=== PATIENT | male | born 1995 | race Hispanic/Latino ===

== ENCOUNTER 2017-03-07 00:01 | Emergency (ER) | payer MEDICAID, OTHER ==
[2017-03-07 01:24] LABS: BASOPHILS % (AUTO) 0.2 % (0.0-5.0); EOSINOPHILS % (AUTO) 1.6 % (0.0-8.0); HEMATOCRIT 44.7 % (42-54); LYMPHOCYTES % (AUTO) 12.4 % (21.0-51.0); MEAN CORPUSCULAR HEMOGLOBIN 26.5 pg (27.0-33.0); MEAN CORPUSCULAR HGB CONC 33.5 g/dL (32.0-36.0); MONOCYTES % (AUTO) 7.5 % (3.0-13.0); NEUTROPHILS % (AUTO) 78.3 % (40.0-77.0); PLATELET COUNT (AUTO) 260 K/uL (130-400); RED BLOOD CELL COUNT(AUTO) 5.65 MIL/uL (4.50-6.20); RED CELL DISTRIBUTION WIDTH 14.6 % (11.0-15.5); WHITE BLOOD COUNT (AUTO) 11.6 K/uL (4.8-10.8)
[2017-03-07 01:30] LABS: CREATININE 1.1 mg/dL (0.5-1.5); POTASSIUM 3.5 mmol/L (3.5-5.1)
[2017-03-07] MEDS ORDERED: DEXAMETHASONE SOD PHOSPHATE 10MG/ML 1ML VIAL ONE (01:53)
[2017-03-07] MEDS ORDERED: CEFTRIAXONE SODIUM 1 GM ONE (01:54)
== END 2017-03-07 02:20 | disposition home or self-care (01) ==
LOC: EDH 00:01
DX: J02.0 Streptococcal pharyngitis (principal); R50.81 Fever presenting with conditions classified elsewhere; Z72.0 Tobacco use
CPT/HCPCS: 36415; 80048; 85025; 87880; 96374; 96375; 99284; J0696; J1100

== ENCOUNTER 2024-12-04 11:31 | Emergency (ER) | payer SELFPAY ==
[~2024-12-04] VITALS: Ht 172.7 cm; Wt 108.9 kg
[~2024-12-04 11:31] MED LIST: ACET-66 PO; AMOX1TAB16 PO; IBUP-1492 PO; ONDA-104 PO
[2024-12-04] MEDS ORDERED: AMOX1TAB16 PO (11:51)
--- NOTE | 2024-12-04 11:51 | ERN ---
ED Note History of Present Illness Stated Complaint: FACIAL SWELLING X 2 DAYS Chief Complaint: Face Pain/Problem Time Seen by MD: 11:34 Time Seen by Midlevel: 11:36 Dictation: 28-year-old male with no medical history coming in with complaints of left-sided facial swelling onset two days ago. Patient states he has had some mild left upper molar pain. Denies having any fever nausea and vomiting or diarrhea. Denies having any recent nasal congestion. No ear pain. Allergies: Coded Allergies: No Known Drug Allergies (Unverified Allergy, Unknown, 06/04/23) Home Meds Active Scripts Ibuprofen (Ibuprofen) 600 Mg Tablet, 600 MG PO Q6H PRN for PAIN, #15 TAB Prov:BAKARI SOLORZANO 06/04/23 Acetaminophen (Acetaminophen) 500 Mg Tablet, 500 MG PO Q4PRN for 5 Days, #15 TAB Prov:BAKARI SOLORZANO 06/04/23 Ondansetron HCl (Ondansetron HCl) 4 Mg Tablet, 4 MG PO TID for 3 Days, #9 TAB Prov:BAKARI SOLORZANO 06/04/23 Amoxicillin/Potassium Clav (Amox Tr-K Clv 875-125 mg Tab) 875 Mg-125 Mg Tablet, 1 EACH PO BID for 10 Days, #20 TAB Prov:BAKARI SOLORZANO 06/04/23 Past Medical History Past Medical History: No Pertinent History Surgical History: None Review of System Dictation Constitutional: Negative for fever,chills, and weight loss Eyes: Negative for injury, pain,redness, and discharge ENT: Negative for injury,pain or swelling Cardiovascular: Negative for chest pain, palpitations, and edema Respiratory: Negative for shortness of breath, cough, and wheezing, Abdomen/GI: Negative for abdominal pain, nausea, vomiting, diarrhea, and constipation Back: Negative for injury and pain : Negative for injury, bleeding and discharge MS/Extremity: Negative for injury and deformity Skin: Negative for rash, and discoloration, complaining of left-sided facial swelling Neuro: Negative for headache, weakness, numbness, tingling, and seizure Psych: Negative for suicide ideation, homicidal ideation, and hallucinations Review of Systems: was completed Initial Vital Sign VS Vital Signs Date Time Temp Pulse Resp B/P (MAP) Pulse Ox O2 Delivery O2 Flow Rate FiO2 12/04/24 11:34 98.6 80 16 134/77 98 Room Air 0 Physical Exam Dictation General: awake, alert, NAD Head/Face: Normocephalic, atraumatic Eyes: PERRL, EOMI, vision at baseline ENT: oral cavity clear, TMs clear, no signs of infection, left upper 2nd to the last molar is discolored, tenderness when I palpate the area, no evidence of any tooth abscess Neck: Trachea midline, supple, no nuchal rigidity, no lymphadenopathy Cardiovascular: RRR, normal S1/S2, No MRGs, no JVD Respiratory: CTAB, no respiratory distress, No rales or wheezes Abdomen: Soft, non-tender, non-distended, normal bowel sounds, no guarding or rebound. Skin: Warm, dry, normal turgor, no rash, there is minimal swelling of the left side of the face near the sinus area, area is mildly erythemic and mildly warm to touch MS/Extremity: Pulses equal, no cyanosis, neurovascular intact, FROM Neuro: COAx4, GCS 15, strength 5/5, CN 2-12 intact, normal cerebellar exam, normal gait, Psych: Normal behavior, mood, and affect normal ED Course ED Course Vital Signs Date Time Temp Pulse Resp B/P (MAP) Pulse Ox O2 Delivery O2 Flow Rate FiO2 12/04/24 11:34 98.6 80 16 134/77 98 Room Air 0 Medical Decision Making MDM MDM: 28-year-old male with no medical history coming in with complaints of left- sided facial swelling onset two days ago. Patient states he has had some mild left upper molar pain. Denies having any fever nausea and vomiting or diarrhea. Denies having any recent nasal congestion. No ear pain. Patient will be discharged on antibiotics. Discussed with the patient possibility of the molar causing the left facial swelling. Could be an early tooth infection. Educated patient to take the antibiotics as prescribed and to follow up with the primary care provider with a in the next 1-2 days. Educated also if the tooth pain becomes more intense and then he needs to follow up with a dentist. Patient verbalized understanding, answered all questions. Differential diagnosis: Cellulitis, tooth abscess, tooth infection Rationale: Tests considered and ordered secondary to shared decision making include: Previous outside records reviewed: Old ER visits. Risk of complication and/or morbidity or mortality of patient management: None Medications-Per medication reconciliation Need for hospitalization: Patient does not meet criteria for hospitalization. Need for emergency major/minor surgery: No There are no social concerns with this patient. Prescription drug management Prescriptions will include symptomatic care Patient's prior external medical records from other ER visits were reviewed by me as indicated. Prior testing and results from previous visits were reviewed. Prior tests were taken into account with medical decision making and resource utilization, independent historian/historians were used to obtain complete medical history. I independently interpreted the test that were performed, results were reviewed by me and considered findings on radiology if ordered. Medical management and examination interpretation discussions were had by me with other qualified healthcare professionals as indicated for the patient's care. DX & DISP Disposition: Discharge Departure Impression: Primary Impression: Cellulitis Condition: Stable Scripts Amoxicillin/Potassium Clav (Amox Tr-K Clv 875-125 mg Tab) 875 Mg-125 Mg Tablet 1 EACH PO BID for 5 Days, #10 TAB 0 Refills Prov: JEFFREY LAM CNP 12/04/24 Additional Instructions: Your facial swelling could be related to your tooth infection. Therefore you need to take the antibiotic as prescribed. Follow up with the primary doctor and or with the dentist if your tooth pain has worsened. Return to the hospital as needed. Pain you can take Tylenol or Motrin [id number]. You can also apply ice they will help with the swelling. Referrals: SELF,REFERRAL (PCP) Time of Disposition: 11:50 I have reviewed the case, and I agree with, Diagnosis and Plan JEFFREY LAM CNP Dec 04, 2024 11:51
[2024-12-04 11:56] VITALS: BP 132/82; PULSE 78; RESP 16; TEMP 98.4; O2SAT 98
== END 2024-12-04 13:18 | disposition home or self-care (01) ==
LOC: EDH 11:31
DX: L03.211 Cellulitis of face (principal); K08.89 Other specified disorders of teeth and supporting structures
CPT/HCPCS: 99284; 96372 ×3; J1100; J1885; J1200